=== PATIENT | male | born 1950 | race Caucasian/White ===

== ENCOUNTER 2021-08-04 05:45 | Day surgery (SDC) | payer OTHER | END 2021-08-04 13:15 | disposition home or self-care (01) | LOC: AMB-ENDOS 05:45 | PROVIDERS: ATTEND Surgery | DX: C18.3 Malignant neoplasm of hepatic flexure (principal); D12.5 Benign neoplasm of sigmoid colon; K57.30 Diverticulosis of large intestine without perforation or abscess without bleeding; I10 Essential (primary) hypertension ==

== ENCOUNTER 2021-09-04 12:40 | Inpatient (IN) | payer OTHER ==
[~2021-09-04] VITALS: Ht 160 cm; Wt 80.3 kg
[2021-09-04] MEDS ORDERED: MIRALAX17 GM (13:47)
[2021-09-04] MEDS ORDERED: DULCOLAX5 MG (13:47)
--- NOTE | 2021-09-04 13:48 | NUR ---
SE RECIBE PTE ALERTA Y ORIENTADO X3. REFIERE SER PTE DE CA DE COLON, INDICA TENER DOLOR PELVICO EN EL LADO BERNIE DESDE HACE 5 [place]. PTE PENDIENTE A OPERACION EL POR DR. SHANI FLYNN PARA REMOVER TUMOR. SE MONITOREAN S/V Y SE UBICA PTE.
--- NOTE | 2021-09-04 15:45 | NUR ---
PACIENTE EVALUDA POR DR JOON HUBER QUIEN [place] [facility]. MIKA BRASWELL ORIENTA A PACIENTE SOBRE EL MISMO Y REFIERE ENTENDER. LE MARCELA MUESTRAS DE LABORATORIO Y LE CANALIZA BAJO MEDIDAS BAJO MEDIDAS ASEPTICAS. SE ADM MED VANITA ORDEN PENDIENTE ESTUDIOS.
--- NOTE | 2021-09-05 01:13 | NUR ---
SE RECIBE PACIENTE DE TURNO ANTERIOR, ALERTA Y ORIENTADO EN TIEMPO LUGAR Y PERSONA. UBICADO EN AURELIO CON BARANDAS ELEVADAS Y FRENOS AJUSTADOS POR SEGURIDAD. CON VENOPUNCION PATENTE, EVAN DE ERITEMA Y EDEMA, RECIBIENDO AL MOMENTO TERAPIA DE IVF'S. PENDIENTE CONSULTA CON DR. CARMONA. SE MANTIENE EN OBSERVACION POR CAMBIOS.
--- NOTE | 2021-09-05 07:07 | NUR ---
SE RECIBE PACIENTE MASCULINO DE 70 ANOS DE EDAD DESPIERTO Y ALERTA EN AURELIO CON BARANDAS ELEVADAS EN POSICION SEMI SENTADO. AREA DE VENOPUNCION PATENTE EVAN DE EDEMAS, ENROJECIMIENTO Y DOLOR AL TACTO. PACIENTE PENDIENTE A CONSULTA CON DR. CARMONA
[2021-09-05] MEDS ORDERED: IRON236 MG (16:11)
== END 2021-09-08 10:49 | disposition home or self-care (01) | DRG 376 ==
LOC: ER 12:40 → SURH 09-05 15:44 → MEDJ 09-05 15:44 → SURH 09-05 18:46
PROVIDERS: ADMIT Colon & Rectal Surgery; ATTEND Colon & Rectal Surgery
PROC: BW2110Z Computerized Tomography (CT Scan) of Abdomen and Pelvis using Low Osmolar Contrast, Unenhanced and Enhanced (ICD-10-PCS; principal; 2021-09-04)
DX: D37.4 Neoplasm of uncertain behavior of colon (principal); K40.90 Unilateral inguinal hernia, without obstruction or gangrene, not specified as recurrent; K59.09 Other constipation; K63.5 Polyp of colon; D64.89 Other specified anemias; Z20.822 Contact with and (suspected) exposure to COVID-19

== ENCOUNTER 2021-09-14 15:10 | Inpatient (IN) | payer OTHER ==
[~2021-09-14] VITALS: Ht 160 cm; Wt 79.8 kg
[~2021-09-14 15:10] MED LIST: DULCOLAX5 MG; IRON236 MG; MIRALAX17 GM
--- NOTE | 2021-09-14 15:27 | NUR ---
PTE ALERTA Y ORIENTADO X3 EN SILLA DE NATIVIDAD EN COMPANIA DE FAMILIAR. PTE REFIERE QUE PRESENTA DOLOR PELVICO DESDE HACEN 2 [place].
--- NOTE | 2021-09-14 19:27 | NUR ---
SE EDUCA A PTE SOBR ET XMEIDCO SAMIR REFIERE ENTENDER. SE CIRILO MUESTRAS DE LABORATORIO UTILIZANDO MEDIDAS ASEPTICAS. SE COLOCA H/L EL CUAL SE ENCUENTRA PATENTE Y EVAN DE EDEMA. SE ADMINISTRAN MEDCIAMENTOS A PTE Y SE NOTIFICA ESTUDIO DE RX Y PCT PENDIENTES A REALIZAR.
[2021-09-18] MEDS ORDERED: HYOSCYAMINE0.125 M1 SL (13:41)
[2021-09-18] MEDS ORDERED: ULTRAM50 MG PO (13:41)
[2021-09-18] MEDS ORDERED: GABAPENTIN300 MG PO (13:41)
[2021-09-18] MEDS ORDERED: INTESTINEX680 M1 PO (13:42)
== END 2021-09-18 15:12 | disposition home or self-care (01) | DRG 330 ==
LOC: ER 15:10 → SURG 09-15 00:43 → SURH 09-15 00:43
PROVIDERS: ADMIT Surgery; ATTEND Surgery
PROC: 0DTF0ZZ Resection of Right Large Intestine, Open Approach (ICD-10-PCS; principal; 2021-09-15)
PROC: BW2100Z Computerized Tomography (CT Scan) of Abdomen and Pelvis using High Osmolar Contrast, Unenhanced and Enhanced (ICD-10-PCS; 2021-09-15)
DX: C18.3 Malignant neoplasm of hepatic flexure (principal); K62.5 Hemorrhage of anus and rectum; C78.6 Secondary malignant neoplasm of retroperitoneum and peritoneum; D36.0 Benign neoplasm of lymph nodes; Z20.822 Contact with and (suspected) exposure to COVID-19

== ENCOUNTER 2022-06-25 15:28 | Inpatient (IN) | payer OTHER ==
[~2022-06-25] VITALS: Ht 165.1 cm; Wt 81.6 kg
[~2022-06-25 15:28] MED LIST changes: +GABAPENTIN300 MG PO; +HYOSCYAMINE0.125 M1 SL; +INTESTINEX680 M1 PO; +ULTRAM50 MG PO
--- NOTE | 2022-06-25 16:43 | NUR ---
PACIENTE ALERTA Y ORIENTADO X3, REFIERE TENER DOLOR DE ESPALDA BAJA. EN ADICION MENCIONA QUE HACE MICHAEL SEMANA TENIA ESCALOFRIOS, NAUSEAS Y MALESTAR ESTOMACAL. SE MONITOREAN VS Y SE UBICIA EN GUY DE ESPERA
--- NOTE | 2022-06-25 18:22 | NUR ---
PACIENTE EVALUADO POR DR. SAHA QUIEN [place] TRATAMIENTO. SE EDUCA A PACIENTE SOBRE EL MISMO Y REFIERE ENTENDER. SE COLECTAN MUESTRAS DE LABORATORIO MEDIANTE MEDIDAS ASEPTICAS. SE ADMIMISTRAN MEDICAMENTOS VANITA ORDEN MEDICA. PACIENTE EN ESPERA DE RESULTADOS DE LABORATORIO
== END 2022-06-27 13:00 | disposition home or self-care (01) | DRG 694 ==
LOC: ER 15:28 → MEDI 21:30
PROVIDERS: Surgery; ADMIT Internal Medicine; ATTEND Internal Medicine
PROC: BW21ZZZ Computerized Tomography (CT Scan) of Abdomen and Pelvis (ICD-10-PCS; 2022-06-25)
PROC: 0TP98DZ Removal of Intraluminal Device from Ureter, Via Natural or Artificial Opening Endoscopic (ICD-10-PCS; principal; 2022-06-26 13:00)
DX: N13.2 Hydronephrosis with renal and ureteral calculous obstruction (principal); N17.8 Other acute kidney failure; Z20.822 Contact with and (suspected) exposure to COVID-19

== ENCOUNTER 2022-07-17 06:50 | Day surgery (SDC) | payer OTHER ==
[~2022-07-17] VITALS: Ht 162.6 cm; Wt 78.9 kg
[2022-07-17] MEDS ORDERED: DICLOFENAC POTA50 MG PO (19:25)
[2022-07-17] MEDS ORDERED: CEPHALEXIN500 MG PO (19:26)
== END 2022-07-18 01:15 | disposition home or self-care (01) ==
LOC: CIR.AMB 06:50
PROVIDERS: ATTEND Surgery
DX: N20.1 Calculus of ureter (principal); Z20.822 Contact with and (suspected) exposure to COVID-19; Z87.891 Personal history of nicotine dependence; F12.90 Cannabis use, unspecified, uncomplicated